=== PATIENT | male | born 1975 | race Caucasian/White ===

== ENCOUNTER 2019-06-21 03:20 | Emergency (ER) | payer OTHER ==
[~2019-06-21] VITALS: Ht 172.7 cm; Wt 104.3 kg
== END 2019-06-21 05:58 | disposition home or self-care (01) ==
LOC: ED 03:20
DX: R45.851 Suicidal ideations (principal)
CPT/HCPCS: 80053; 80176; 81001; 84443; 85025; 99284; G0480